=== PATIENT | male | born 1955 | race Caucasian/White ===

== ENCOUNTER 2018-04-29 01:19 | Emergency (ER) | payer BC ==
[~2018-04-29] VITALS: Ht 185.4 cm; Wt 81.6 kg
[2018-04-29] MEDS ORDERED: SULFAMETH/TRIMETH 800/160 MG TABLET PO ONE (01:30)
[2018-04-29] MEDS ORDERED: SULFAMETH/TRIMETH 800/160 MG TABLET ONE (01:40)
[2018-04-29 01:41] VITALS: BP 143/76
== END 2018-04-29 01:41 | disposition home or self-care (01) ==
LOC: ER 01:21
DX: S60.362A Insect bite (nonvenomous) of left thumb, initial encounter (principal); L08.9 Local infection of the skin and subcutaneous tissue, unspecified; W57.XXXA Bitten or stung by nonvenomous insect and other nonvenomous arthropods, initial encounter; Y93.89 Activity, other specified; Y92.89 Other specified places as the place of occurrence of the external cause; Y99.8 Other external cause status
CPT/HCPCS: 99283; A4663